=== PATIENT | male | born 1980 | race Caucasian/White ===

== ENCOUNTER 2019-02-01 13:54 | Emergency (ER) | payer SELFPAY ==
--- NOTE | 2019-02-01 14:01 | ERPHSYRPT ---
- History of Present Illness Time Seen by Provider: 02/01/19 14:00 Source: patient, family Exam Limitations: no limitations Physician History: 38 y/o white male presents with dog bite to right post calve. pts tetanus status is not utd. it is pts family dog. the dogs immunizations are utd. Timing/Duration: today Quality: painful Severity: moderate Location: extremities (right post calve) Possible Causes: other (dog bite) Associated Symptoms: denies symptoms - Review of Systems Constitutional: No Symptoms Eyes: No Symptoms Ears, Nose, & Throat: No Symptoms Respiratory: No Symptoms Cardiac: No Symptoms Abdominal/Gastrointestinal: No Symptoms Genitourinary Symptoms: No Symptoms Musculoskeletal: No Symptoms Skin: Other (dog bite to right post calve multiple puncture sites and a single lac) Neurological: No Symptoms Psychological: No Symptoms Endocrine: No Symptoms Hematologic/Lymphatic: No Symptoms Immunological/Allergic: No Symptoms All Other Systems: Reviewed and Negative - Past Medical History Pertinent Past Medical History: Yes Neurological History: No Pertinent History ENT History: No Pertinent History Cardiac History: No Pertinent History Respiratory History: No Pertinent History Endocrine Medical History: No Pertinent History Musculoskeletal History: No Pertinent History GI Medical History: No Pertinent History History: No Pertinent History Psycho-Social History: No Pertinent History Male Reproductive Disorders: No Pertinent History - Past Surgical History Neuro Surgical History: No Pertinent History Cardiac: No Pertinent History Respiratory: No Pertinent History Gastrointestinal: No Pertinent History Genitourinary: No Pertinent History Musculoskeletal: No Pertinent History Male Surgical History: No Pertinent History - Nursing Vital Signs Nursing Vital Signs: Initial Vital Signs Pulse Rate 73 02/01/19 14:02 Blood Pressure 129/67 02/01/19 14:02 O2 Sat by Pulse Oximetry 100 02/01/19 14:02 Pain Scale Pain Intensity 7 - Physical Exam General Appearance: mild distress, alert, anxiety Eye Exam: PERRL/EOMI, eyes nml inspection Ears, Nose, Throat Exam: normal ENT inspection, moist mucous membranes Neck Exam: normal inspection, non-tender, supple, full range of motion Respiratory Exam: No chest tenderness Gastrointestinal/Abdomen Exam: No tenderness Rectal Exam: not done Back Exam: normal inspection, normal range of motion, No CVA tenderness, No vertebral tenderness Extremity Exam: normal range of motion, pelvis stable Neurologic Exam: alert, oriented x 3, cooperative, 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 several small punctate bite sites) Lymphatic Exam: No adenopathy SpO2 Interpretation: normal O2 Delivery: Room Air Procedures - Laceration/Wound Repair Right Posterior Calf Wound Location: Right, lower leg Wound Length (cm): 4 Wound's Depth, Shape: linear, into subcut Wound Explored: to base Irrigated: Yes Hibiclens Prep: Yes Anesthesia: 1% Lidocaine Volume Anesthetic (ccs): 3 Wound Repaired With: Oralia (two) Layer Closure?: No - Course Nursing assessment & vital signs reviewed: Yes Ordered Tests: Active Orders 24 hr Category Date Time Status Wound Care STAT Care 02/01/19 14:07 Active Medication Summary Discontinued Medications Generic Name Dose Route Start Last Admin Trade Name Freq PRN Reason Stop Dose Admin Hydrocodone Bitart/Acetaminophen 1 tab 02/01/19 14:08 02/01/19 14:28 [place] 5/325 Mg PO 02/01/19 14:09 1 tab STAT ONE Administration Hydrocodone Bitart/Acetaminophen Confirm 02/01/19 14:23 [place] 5/325 Mg Administered 02/01/19 14:24 Dose 1 tab .ROUTE .STK-MED ONE Cephalexin HCl 500 mg 02/01/19 14:07 02/01/19 14:28 Keflex 500 Mg PO 02/01/19 14:08 500 mg STAT ONE Administration Cephalexin HCl Confirm 02/01/19 14:23 Keflex 500 Mg Administered 02/01/19 14:24 Dose 500 mg .ROUTE .STK-MED ONE Diphtheria/Tetanus/Acell Pertussis 0.5 ml 02/01/19 14:07 02/01/19 14:25 Adacel Vial IM 02/01/19 14:08 0.5 ml .ONCE ONE Administration Diphtheria/Tetanus/Acell Pertussis Confirm 02/01/19 14:24 Adacel Vial Administered 02/01/19 14:25 Dose 0.5 ml IM .STK-MED ONE Lidocaine HCl 5 ml 02/01/19 14:07 02/01/19 14:28 Xylocaine 1% Hcl 20 Ml Mdv IJ 02/01/19 14:08 5 ml STAT ONE Administration Lidocaine HCl Confirm 02/01/19 14:24 Xylocaine 1% Hcl 20 Ml Mdv Administered 02/01/19 14:25 Dose 5 ml .ROUTE .STK-MED ONE Lidocaine/Prilocaine 2.5 gm 02/01/19 14:08 02/01/19 14:27 Emla Cream 5 Gm TP 02/01/19 14:09 2.5 gm STAT ONE Administration Lidocaine/Prilocaine Confirm 02/01/19 14:06 Emla Cream 5 Gm Administered 02/01/19 14:07 Dose 5 gm TP .STK-MED ONE - Progress Progress: improved Counseled pt/family regarding: diagnosis, need for follow-up - Departure Departure Disposition: Home Clinical Impression: Dog bite of calf, Laceration of calf Condition: Stable Critical Care Time: No Referrals: EDSON RAMSEY [Primary Care Provider] - Additional Instructions: keep current dressing in place for 24 hours. after 24 hours, may wash daily then cover with nonstick gauze, 4x4 gauze and hever wrap daily. staple removal in 8 to 10 days. add ibuprofen for pain Prescriptions: Hydrocodone/APAP 5-325 Tab^^^ [[place] 5-325 Tablet^^^] 1 tab PO Q8H PRN PRN #6 tablet MDD 3 PRN Reason: Pain Amoxicillin/Potassium Clav [Augmentin 500-125 Tablet] 500 mg PO Q8H #15 tablet
[2019-02-01] MEDS ORDERED: EMLA Cream 5 GM TP ONE ×2 (14:06→14:08)
[2019-02-01] MEDS ORDERED: KEFLEX 500 MG PO ONE (14:07)
[2019-02-01] MEDS ORDERED: XYLOCAINE 1% HCL 20 ML MDV IJ ONE (14:07)
[2019-02-01] MEDS ORDERED: Adacel Vial IM ONE ×2 (14:07→14:24)
[2019-02-01] MEDS ORDERED: NORCO 5/325 MG PO ONE (14:08)
[2019-02-01 14:23] VITALS: BP 129/67; PULSE 73; O2SAT 100
[2019-02-01] MEDS ORDERED: NORCO 5/325 MG ONE (14:23)
[2019-02-01] MEDS ORDERED: KEFLEX 500 MG ONE (14:23)
[2019-02-01] MEDS ORDERED: XYLOCAINE 1% HCL 20 ML MDV ONE (14:24)
== END 2019-02-01 15:05 | disposition home or self-care (01) ==
LOC: ED 13:54
DX: S81.811A Laceration without foreign body, right lower leg, initial encounter (principal); W54.0XXA Bitten by dog, initial encounter
CPT/HCPCS: 12002; 90471; 90715; 96372; 99284; A9270-GY